=== PATIENT | male | born 1970 ===

== ENCOUNTER 2018-01-16 18:18 | Emergency (ER) | payer OTHER ==
[2018-01-16 18:28] VITALS: PULSE 80
[2018-01-16 19:18] VITALS: BP 149/91; RESP 20; TEMP 97.9
--- NOTE | 2018-01-16 19:19 | C.PDOC ---
History Of Present Illness 47-year-old male, presents to the emergency department with complaints of fall three days ago, sustaining injury of left side of chest that is worse with movement and deep inspiration. Denies any head or neck injury. Time Seen by Provider: 01/16/18 18:35 Chief Complaint (Nursing): Rib Injury History Per: Patient History/Exam Limitations: no limitations Onset/Duration Of Symptoms: Days Current Symptoms Are (Timing): Still Present Severity: Moderate Past Medical History Reviewed: Historical Data, Nursing Documentation, Vital Signs Vital Signs: Last Vital Signs Temp 97.9 F 01/16/18 19:18 Pulse 80 01/16/18 19:18 Resp 20 01/16/18 19:18 BP 149/91 H 01/16/18 19:18 Pulse Ox 97 01/16/18 19:25 Family History: States: No Known Family Hx - Social History Hx Alcohol Use: No Hx Substance Use: No - Immunization History Hx Tetanus Toxoid Vaccination: No Hx Influenza Vaccination: No Hx Pneumococcal Vaccination: No Review Of Systems Cardiovascular: Positive for: Chest Pain Respiratory: Positive for: Pleuritic Pain. Negative for: Shortness of Breath Gastrointestinal: Negative for: Vomiting Musculoskeletal: Negative for: Neck Pain Neurological: Negative for: Weakness, Numbness, Headache, Dizziness Physical Exam - Physical Exam Appears: Non-toxic, No Acute Distress Skin: Normal Color, Warm, Dry, No Rash Head: Atraumatic, Normacephalic Eye(s): bilateral: Normal Inspection Neck: Normal ROM Chest: Symmetrical, Tenderness (and swelling to left lateral chest wall), No Ecchymosis, No Subcutaneous Emphysema Cardiovascular: Rhythm Irregular, No Murmur Respiratory: Normal Breath Sounds, No Accessory Muscle Use, No Rhonchi, No Wheezing Extremity: Normal ROM, Capillary Refill (<2 seconds), No Deformity, No Swelling Neurological/Psych: Oriented x3, Normal Speech ED Course And Treatment O2 Sat by Pulse Oximetry: 97 (RA) Pulse Ox Interpretation: Normal Medical Decision Making Medical Decision Making: Impression: chest wall injury Plan: * XR Chest * Motrin Xray viewed by me showing possible rib fracture. Patient reevaluated and made aware of xray finding. Recommend analgesics and to follow up in the clinic. Disposition Counseled Patient/Family Regarding: Diagnosis, Need For Followup, Rx Given - Disposition Referrals: [facility] [Outside] [facility] [Outside] Disposition: HOME/ ROUTINE Disposition Time: 19:17 Condition: STABLE Additional Instructions: Your xray shows rib fracture Take Motrin for pain and inflammation Take Tramadol for severe pain Follow up with your doctor Prescriptions: Ibuprofen [Motrin] 600 mg PO Q8 #30 tab traMADol [Ultram] 50 mg PO Q8 PRN #15 tab PRN Reason: Pain, Severe (8-10) Instructions: Rib Fractures in Adults Forms: [employer] ([place]) Print Language: PANAMANIAN - POLouis Present On Arrival: None - Clinical Impression Clinical Impression: Rib fracture
[2018-01-16 19:21] VITALS: O2SAT 97
--- NOTE | 2018-01-17 08:27 | RAD ---
PROCEDURE: Radiographs of the Chest and Left Ribs. HISTORY: pain s.p fall and injury COMPARISON: None available. TECHNIQUE: Frontal radiograph of the chest and multiple oblique radiographs of the left ribs were obtained. FINDINGS: LEFT RIBS: No fracture or focal lesion visualized. LUNGS: Clear. PLEURA: No pneumothorax or pleural fluid. CARDIOVASCULAR: Normal sized heart. No pulmonary vascular congestion. OTHER FINDINGS: None. IMPRESSION: Unremarkable radiographs of the chest and left ribs. No left rib fracture.
== END 2018-01-16 19:29 | disposition home or self-care (01) ==
LOC: C.ER 18:18
DX: S22.32XA Fracture of one rib, left side, initial encounter for closed fracture (principal); W18.30XA Fall on same level, unspecified, initial encounter; Y92.9 Unspecified place or not applicable